=== PATIENT | male | born 1935 | race Caucasian/White ===

== ENCOUNTER 2022-12-03 17:22 | Emergency (ER) | payer MEDICARE ==
[2022-12-03] MEDS ORDERED: IPRATROPIUM-ALBUTEROL 3 ML NEB INHALATION STA (17:42)
[2022-12-03 17:45] VITALS: TEMP 99.4
--- NOTE | 2022-12-03 18:00 | ED ---
Recheck HPI - General Chief Complaint: Shortness of Breath Stated Complaint: BORIS Time Seen by Provider: 12/03/22 17:39 Source: EMS, RN notes reviewed, old records reviewed Mode of arrival: EMS Limitations: altered mental status, physical limitation - History of Present Illness Initial Comments: This is a 83-year-old male to the ER for evaluation. Patient presents today for of low oxygen in atrial fibrillation at [facility]. Patient is a poor strain secondary to clinical status and condition. Patient himself has no complaints upon arrival MD Complaint: abnormal lab, other (Abnormal heart rate abnormal oxygenation) -: unknown Returns Today for: Called Because of Abnormal Lab/Test (Abnormal heart rate abnormal oxygenation) Symptoms Since Prior Visit: no new symptoms Associated Symptoms: none Treatments Prior to Arrival: other (0) - Related Data Home Medications Medication Instructions Recorded Confirmed Acetaminophen Tab [Tylenol] 650 mg PO Q6H PRN 12/03/22 12/03/22 Atorvastatin [Lipitor] 80 mg PO HS 12/03/22 12/03/22 Cholecalciferol [Vitamin D3 (25 50 mcg PO DAILY 12/03/22 12/03/22 Mcg = 1000 Iu)] Clopidogrel [Plavix] 75 mg PO DAILY 12/03/22 12/03/22 Cyanocobalamin [Vitamin B-12] 1,000 mcg PO DAILY 12/03/22 12/03/22 Ferrous Sulfate [Feosol] 325 mg PO DAILY 12/03/22 12/03/22 Furosemide Injection 10mg/Ml 40 mg IM ONCE 12/03/22 12/03/22 Furosemide [Lasix] See Taper PO DIRECTED 12/03/22 12/03/22 Losartan [Cozaar] 50 mg PO DAILY 12/03/22 12/03/22 Metoprolol Tartrate [Lopressor] 50 mg PO BID 12/03/22 12/03/22 Tamsulosin [Flomax] 0.4 mg PO HS 12/03/22 12/03/22 metFORMIN HCL [Glucophage] 850 mg PO DAILY 12/03/22 12/03/22 Allergies Allergy/AdvReac Type Severity Reaction Status Date / Time No Known Allergies Allergy Verified 12/03/22 18:53 Review of Systems ROS Statement: Those systems with pertinent positive or pertinent negative responses have been documented in the HPI. ROS Other: All systems not noted in ROS Statement are negative. Past Medical History Past Medical History: Atrial Fibrillation, CVA/TIA, Diabetes Mellitus, GERD/Reflux, Hyperlipidemia, Hypertension, Renal Disease History of Any Multi-Drug Resistant Organisms: None Reported Past Surgical History: Unable to Obtain Past Psychological History: No Psychological Hx Reported Smoking Status: Never smoker Past Alcohol Use History: None Reported Past Drug Use History: None Reported General Exam Limitations: altered mental status General appearance: alert, in no apparent distress Head exam: Present: atraumatic, normocephalic, normal inspection Eye exam: Present: normal appearance, PERRL, EOMI. Absent: scleral icterus, co njunctival injection, periorbital swelling ENT exam: Present: normal exam, mucous membranes moist Neck exam: Present: normal inspection. Absent: tenderness, meningismus, lymphadenopathy Respiratory exam: Present: normal lung sounds bilaterally. Absent: respiratory distress, wheezes, rales, rhonchi, stridor Cardiovascular Exam: Present: regular rate, normal rhythm, normal heart sounds. Absent: systolic murmur, diastolic murmur, rubs, gallop, clicks GI/Abdominal exam: Present: soft, normal bowel sounds. Absent: distended, tenderness, guarding, rebound, rigid Extremities exam: Present: normal inspection, full ROM, normal capillary refill. Absent: tenderness, pedal edema, joint swelling, calf tenderness Back exam: Present: normal inspection Neurological exam: Present: alert, oriented X3, CN II-XII intact Psychiatric exam: Present: normal affect, normal mood Skin exam: Present: warm, dry, intact, normal color. Absent: rash Course Vital Signs 12/03/22 12/03/22 12/03/22 17:23 17:26 17:30 Temperature 99.4 F Pulse Rate 134 H Respiratory 18 Rate Blood Pressure 123/66 O2 Sat by Pulse 88 L 85 L 92 L Oximetry 12/03/22 12/03/22 12/03/22 17:52 18:00 18:02 Temperature Pulse Rate 138 H 129 H 124 H Respiratory 22 Rate Blood Pressure 123/66 O2 Sat by Pulse 99 Oximetry 12/03/22 12/03/22 12/03/22 19:00 19:30 20:30 Temperature Pulse Rate 137 H 137 H 122 H Respiratory 21 13 16 Rate Blood Pressure 104/70 103/86 108/57 O2 Sat by Pulse 95 Oximetry - Reevaluation(s) Reevaluation #1: 12/03/22 20:58 Medical record is reviewed Reevaluation #2: 12/03/22 20:59 Spoke patient's family states patient is a no CODE STATUS, DO NOT RESUSCITATE status Reevaluation #3: 12/03/22 20:59 Spoke with patient and family regarding findings, family and power of commercial attorney, patient's daughter do want patient sent back to facility with no treatment Reevaluation #4: 12/03/22 21:00 Was pt. sent in by a medical professional or institution? @ -yes [facility] Did you speak to anyone other than the patient for history? @ -no Did you review nursing and triage notes? @ -agree Were old charts reviewed? @ -yes prior facility Differential Diagnosis? @ -no EKG interpreted by me (3pts min.)? @ -yes X-rays interpreted by me (1pt min.)? @ -yes CT interpreted by me (1pt min.)? @ -no U/S interpreted by me (1pt. min.)? @ -no What testing was considered but not performed? (CT, X-rays, U/S, labs)? Why? @ -no What meds were considered but not given? Why? @ -no Did you discuss the management of the patient with other professionals? @ -no Did you reconcile home meds? @ -no Was smoking cessation discussed for >3mins.? @ -no Was critical care preformed (if so, how long)? @ -no Were there social determinants of health that impacted care today? How? (Homelessness, low income, unemployed, alcoholism, drug addiction, tra nsportation, low edu. Level, literacy, decrease access to med. care, halfway, rehab)? @ -no Was there de-escalation of care discussed even if they declined? (Discuss DNR or withdrawal of care, Hospice)? @ -no What co-morbidities impacted this encounter? (DM, HTN, Smoking, COPD, CAD, Cancer, CVA, Hep., AIDS, mental health diagnosis, sleep apnea, morbid obesity)? @ -no Was patient admitted / discharged? @ -dc Undiagnosed new problem with uncertain prognosis? @ -no Drug Therapy requiring intensive monitoring for toxicity (Heparin, Nitro, Insulin, Cardizem)? @ -no Were any procedures done? @ -no Diagnosis/symptom? @ -no Acute, or Chronic, or Acute on Chronic? @ -no Uncomplicated (without systemic symptoms) or Complicated (systemic symptoms)? @ -no Side effects of treatment? @ -no Exacerbation, Progression, or Severe Exacerbation] @ -no Poses a threat to life or bodily function? @ -no Reevaluation #5: 12/03/22 21:00 Differential Dyspnea: Coronary syndrome, arrhythmia, tamponade, asthma, COPD, pulmonary embolism, pneumonia, pneumothorax, pulmonary effusion, anaphylaxis, diabetic ketoacidosis, flailed chest, pulmonary contusion, diaphragmatic rupture, anemia, neuromuscu lar, this is not meant to be an all-inclusive list. Medical Decision Making - Medical Decision Making 87 male to the ER for evaluation of low oxygenation elevated heart rate heart rate improved oxygenation per without we do recommend patient on supplemental O2 at facility and patient will be discharged - Lab Data Result diagrams: 12/03/22 18:11 12/03/22 18:11 Lab Results 12/03/22 12/03/22 12/03/22 Range/Units 18:11 18:11 18:11 WBC 16.8 H (3.8-10.6) k/uL RBC 3.85 L (4.30-5.90) m/uL Hgb 10.2 L (13.0-17.5) gm/dL Hct 33.3 L (39.0-53.0) % MCV 86.5 (80.0-100.0) fL MCH 26.4 (25.0-35.0) pg MCHC 30.6 L (31.0-37.0) g/dL RDW 17.5 H (11.5-15.5) % Plt Count 304 (150-450) k/uL MPV 10.1 Neutrophils % 89 % Lymphocytes % 3 % Monocytes % 6 % Eosinophils % 0 % Basophils % 0 % Neutrophils # 14.9 H (1.3-7.7) k/uL Lymphocytes # 0.5 L (1.0-4.8) k/uL Monocytes # 1.1 H (0-1.0) k/uL Eosinophils # 0.0 (0-0.7) k/uL Basophils # 0.0 (0-0.2) k/uL Hypochromasia Slight Anisocytosis Slight PT 10.4 (9.0-12.0) sec INR 1.0 (<1.2) APTT 25.5 (22.0-30.0) sec D-Dimer 4.48 H (<0.60) mg/L FEU Sodium 136 L (137-145) mmol/L Potassium 4.9 (3.5-5.1) mmol/L Chloride 97 L (98-107) mmol/L Carbon Dioxide 29 (22-30) mmol/L Anion Gap 10 mmol/L BUN 82 H (9-20) mg/dL Creatinine 1.61 H (0.66-1.25) mg/dL Est GFR (CKD-EPI)AfAm 44 (>60 ml/min/1.73 sqM) Est GFR (CKD-EPI)NonAf 38 (>60 ml/min/1.73 sqM) Glucose 177 H (74-99) mg/dL Plasma Lactic Acid Kaleb (0.7-2.0) mmol/L Calcium 8.1 L (8.4-10.2) mg/dL Magnesium 2.0 (1.6-2.3) mg/dL Total Bilirubin 1.0 (0.2-1.3) mg/dL AST 63 H (17-59) U/L ALT 45 (4-49) U/L Alkaline Phosphatase 85 (38-126) U/L Troponin I (0.000-0.034) ng/mL Total Protein 5.7 L (6.3-8.2) g/dL Albumin 2.9 L (3.5-5.0) g/dL Influenza Type A (PCR) (Not Detectd) Influenza Type B (PCR) (Not Detectd) RSV (PCR) (Not Detectd) SARS-CoV-2 (PCR) (Not Detectd) 12/03/22 12/03/22 12/03/22 Range/Units 18:11 18:11 18:41 WBC (3.8-10.6) k/uL RBC (4.30-5.90) m/uL Hgb (13.0-17.5) gm/dL Hct (39.0-53.0) % MCV (80.0-100.0) fL MCH (25.0-35.0) pg MCHC (31.0-37.0) g/dL RDW (11.5-15.5) % Plt Count (150-450) k/uL MPV Neutrophils % % Lymphocytes % % Monocytes % % Eosinophils % % Basophils % % Neutrophils # (1.3-7.7) k/uL Lymphocytes # (1.0-4.8) k/uL Monocytes # (0-1.0) k/uL Eosinophils # (0-0.7) k/uL Basophils # (0-0.2) k/uL Hypochromasia Anisocytosis PT (9.0-12.0) sec INR (<1.2) APTT (22.0-30.0) sec D-Dimer (<0.60) mg/L FEU Sodium (137-145) mmol/L Potassium (3.5-5.1) mmol/L Chloride (98-107) mmol/L Carbon Dioxide (22-30) mmol/L Anion Gap mmol/L BUN (9-20) mg/dL Creatinine (0.66-1.25) mg/dL Est GFR (CKD-EPI)AfAm (>60 ml/min/1.73 sqM) Est GFR (CKD-EPI)NonAf (>60 ml/min/1.73 sqM) Glucose (74-99) mg/dL Plasma Lactic Acid Kaleb 1.9 (0.7-2.0) mmol/L Calcium (8.4-10.2) mg/dL Magnesium (1.6-2.3) mg/dL Total Bilirubin (0.2-1.3) mg/dL AST (17-59) U/L ALT (4-49) U/L Alkaline Phosphatase (38-126) U/L Troponin I 0.070 H* (0.000-0.034) ng/mL Total Protein (6.3-8.2) g/dL Albumin (3.5-5.0) g/dL Influenza Type A (PCR) Not Detected (Not Detectd) Influenza Type B (PCR) Not Detected (Not Detectd) RSV (PCR) Not Detected (Not Detectd) SARS-CoV-2 (PCR) Not Detected (Not Detectd) - EKG Data -: EKG Interpreted by Me (EKG is A. fib with RVR 135 QRS 78 QTc 367) Disposition Clinical Impression: Hypoxia, Atrial fibrillation with RVR, DNR no code (do not resuscitate) Disposition: HOME SELF-CARE Condition: Fair Is patient prescribed a controlled substance at d/c from ED?: No Referrals: Ramila Scott MD [Primary Care Provider] - 1-2 days Time of Disposition: 21:00
--- NOTE | 2022-12-03 18:28 | XR ---
EXAMINATION TYPE: XR chest 1V portable DATE OF EXAM: 12/03/2022 6:01 PM COMPARISON: None TECHNIQUE: XR chest 1V portable Frontal view of the chest. CLINICAL INDICATION:Male, 87 years old with history of sob; FINDINGS: Lungs/Pleura: There is no evidence of pleural effusion, focal consolidation, or pneumothorax. Pulmonary vascularity: Unremarkable. Heart/mediastinum: Cardiomediastinal silhouette is unremarkable. Musculoskeletal: No acute osseous pathology. Right shoulder arthroplasty changes. IMPRESSION: No acute cardiopulmonary disease/process.
[2022-12-03 18:31] LABS: Anisocytosis Slight; Basophils % (A) 0 %; Eosinophils % (A) 0 %; HCT 33.3 % (39.0-53.0); HGB 10.2 gm/dL (13.0-17.5); Hypochromasia Slight; Lymphocytes # (A) 0.5 k/uL (1.0-4.8); Lymphocytes % (A) 3 %; MCH 26.4 pg (25.0-35.0); MCHC 30.6 g/dL (31.0-37.0); MCV 86.5 fL (80.0-100.0); Mean Platelet Volume 10.1; Monocytes # (A) 1.1 k/uL (0-1.0); Monocytes % (A) 6 %; Neutrophils # (A) 14.9 k/uL (1.3-7.7); Neutrophils % (A) 89 %; Platelet Count 304 k/uL (150-450); RBC 3.85 m/uL (4.30-5.90); RDW 17.5 % (11.5-15.5); WBC 16.8 k/uL (3.8-10.6)
[2022-12-03 18:40] LABS: Albumin 2.9 g/dL (3.5-5.0); Calcium 8.1 mg/dL (8.4-10.2); Potassium 4.9 mmol/L (3.5-5.1); Total Protein 5.7 g/dL (6.3-8.2)
[2022-12-03 19:11] LABS: Partial Thromboplastin Time 25.5 sec (22.0-30.0); Prothrombin Time 10.4 sec (9.0-12.0)
[2022-12-03] MEDS ORDERED: DILTIAZEM 5 MG/ML 5 ML VIAL IVP STA (20:53)
[2022-12-03 22:21] VITALS: BP 119/81; PULSE 120; RESP 18
== END 2022-12-03 22:05 | disposition home or self-care (01) ==
LOC: EC 17:22
DX: R09.02 Hypoxemia (principal); I48.20 Chronic atrial fibrillation, unspecified; Z66 Do not resuscitate; E11.9 Type 2 diabetes mellitus without complications; I10 Essential (primary) hypertension; E78.5 Hyperlipidemia, unspecified; Z86.73 Personal history of transient ischemic attack (TIA), and cerebral infarction without residual deficits; Z79.899 Other long term (current) drug therapy; Z79.02 Long term (current) use of antithrombotics/antiplatelets; Z20.822 Contact with and (suspected) exposure to COVID-19; Z79.84 Long term (current) use of oral hypoglycemic drugs
CPT/HCPCS: 36415; 71045; 80053; 83605; 83735; 83880; 84484; 85025; 85379; 85610; 85730; 87636; 93005; 94640; 99285